=== PATIENT | female | born 1935 | race Caucasian/White ===

== ENCOUNTER 2017-12-20 12:20 | Emergency (ER) | payer OTHER, BC ==
[~2017-12-20] VITALS: Ht 165.1 cm; Wt 91.1 kg
[~2017-12-20 12:20] MED LIST: AUGMENTIN875 MG PO; BISOPROLOL-HCT1 EAC2 PO; BISOPROLOL-HCT1 EACH PO; CATAPRES-TTS 11 EACH TD; CATAPRES0.1 MG PO; CEPHALEXIN500 MG PO; COUMADIN3 MG PO; ENDOCET 5-3251 EACH PO; FLORASTOR250 MG PO; LASIX40 MG PO; TYLENOL EXTRA500 MG PO
[2017-12-20 13:30] LABS: HEMATOCRIT 45.7 % (36.0-46.0); HEMOGLOBIN 15.7 G/DL (11.9-15.5); MCH 30.7 PG (29.0-34.0); MCHC 34.4 G/DL (30.0-36.0); MCV 89.4 FL (83-99); PLATELET COUNT 304 K/uL (156-360); RBC DIS.WIDTH-CV 12.8 % (11.8-14.6); RBC DIS.WIDTH-SD 41.9 % (39-53); RED BLOOD COUNT 5.11 M/uL (3.80-5.20); WHITE BLOOD COUNT 13.4 K/uL (4.1-10.2)
[2017-12-20 13:44] LABS: INTER. NORMALIZED RATIO 2.8
[2017-12-20 13:54] LABS: TROP-I INTERPRETATION NEGATIVE; TROPONIN-I < 0.01 ng/mL (0.0-0.30)
[2017-12-20 14:06] LABS: CHLORIDE 96 MEQ/L (99-109); CREATININE 0.7 MG/DL (0.6-1.3); GFR ESTIMATE (CALCULATED) > 59 mL/min/; GLUCOSE 141 mg/dL (70-99); POTASSIUM 3.7 MEQ/L (3.7-5.4); SODIUM 134 MEQ/L (136-147); UREA NITROGEN (BUN) 12 mg/dL (9-23)
[2017-12-20 14:57] LABS: APPEARANCE SL.HAZY ((CLEAR)); BILIRUBIN NEGATIVE; BLOOD NEGATIVE; COLOR AMBER ((YELLOW)); GLUCOSE (STRIP) NEGATIVE; KETONES NEGATIVE; LEUKOCYTES TRACE; NITRITE POSITIVE; PROTEIN (STRIP) NEGATIVE; SPECIFIC GRAVITY 1.021 (1.000-1.030)
[2017-12-20 15:25] LABS: RED BLOOD CELLS NONE SEEN /HPF (0-5)
[2017-12-20 15:26] LABS: BACTERIA 3+ /HPF; EPITHELIAL CELLS RARE /HPF; MUCUS TRACE /LPF; UCUL ADDED? YES; WHITE BLOOD CELLS 15-20 /HPF (0-5)
[2017-12-20] MEDS ORDERED: MACROBID100 MG PO (15:49)
[2017-12-20 17:55] VITALS: BP 169/88
== END 2017-12-20 18:03 | disposition home or self-care (01) ==
LOC: EME 12:20
PROVIDERS: Emergency Medicine
DX: N39.0 Urinary tract infection, site not specified (principal); Z91.81 History of falling; M25.552 Pain in left hip; I10 Essential (primary) hypertension; Z86.718 Personal history of other venous thrombosis and embolism; Z79.01 Long term (current) use of anticoagulants; Z88.1 Allergy status to other antibiotic agents; Z88.8 Allergy status to other drugs, medicaments and biological substances
CPT/HCPCS: 70450; 71045; 73502; 80048; 81003; 84484; 85027; 85610; 87077; 87086 GA; 87186; 87502; 93005; 99281; 99285; J0696